=== PATIENT | female | born 1995 | race African-American/Black ===

== ENCOUNTER 2019-04-16 10:51 | Emergency (ER) | payer OTHER, SELFPAY ==
[2019-04-16 11:28] VITALS: BP 128/74; PULSE 98; RESP 16; TEMP 36.8; O2SAT 100
--- NOTE | 2019-04-16 12:41 | ED.SKABFB ---
HPI - Skin/Abscess/Foreign Bdy General Chief complaint: Skin/Abscess/Foreign Body Stated complaint: diarrhea/vomiting/lump left breast swollen Source: patient and RN notes reviewed Mode of arrival: ambulatory Limitations: no limitations History of Present Illness HPI narrative: 23 year old female accompanied by friend presents to express care with complaints of painful lump to her left breast for the past 3 week. She also states that she has had nausea for the past 4 days with vomiting yesterday and has had diarrhea for the past 2-3 days. Patient has palpable moveable lump noted to her left breast, states no pain to her axilla at this time, no drainage from her breast noted, states that he does drink caffeine. Patient denies any abdominal pain, chills or fevers associated with her nausea or vomiting or diarrhea, has not traveled outside of [place] recently or any known exposure to flu MD complaint: other (painful lump left breast) Onset (ago): week(s) (3) Tetanus up to date: yes Severity: moderate Severity scale (1-10): 3 Quality: aching Pain Consistency: constant Relieving factors: none Exacerbating factors: palpation Context: none Associated symptoms: nausea, vomiting and other (diarrhea) Treatments prior to arrival: none Related Data Home Medications Medication Instructions Recorded Confirmed dextroamphetamine-amphetamine 20 mg PO DAILY 04/16/19 04/16/19 [Adderall] Allergies Allergy/AdvReac Type Severity Reaction Status Date / Time No Known Allergies Allergy Verified 04/16/19 11:46 Review of Systems Review of Systems: Narrative: CONSTITUTIONAL: Denies fever, chills, or sweats. EYES: Denies visual changes, redness, or discharge. ENT: Denies rhinorrhea, congestion, sore throat, or otalgia. CARDIOVASCULAR: Denies chest pain, palpitations, or edema. RESPIRATORY: Denies cough or dyspnea. GASTROINTESTINAL: Denies abdominal pain, positive nausea, vomiting, or diarrhea. GENITOURINARY: Denies dysuria or hematuria. SKIN: Denies rash or itching.positive for palpable tender lump in left lateral breast increase pain with palpation MUSCULOSKELETAL: Denies back pain, joint pain, or myalgia. NEUROLOGIC: Denies headache, numbness, or weakness. PSYCHIATRIC: Denies anxiety or depression. All systems reviewed & are unremarkable except as noted in HPI and below PMFSH Past Medical History Medical History (Updated 04/18/19 @ 10:13 by Lili Stern NP) ADHD Social History Social History (Updated 04/16/19 @ 13:38 by Lili Stern NP) Smoking status: Current every day smoker Living arrangements: with family Gender identity (if verbalized by the patient): Female Comments At time of signature, agree with nursing past medical, surgical, social and family history. There is no relevant family history pertinent to the presenting complaint Exam Narrative: Exam Narrative: GENERAL: Well-appearing, well-nourished, and in no acute distress. HEAD: Normocephalic, atraumatic. EYES: PERRLA and EOMI. ENT: Nares clear, no rhinorrhea or epistaxis. Mucous membranes moist. NECK: Supple. CHEST: Clear to auscultation. No respiratory distress. Painful palpable lesion to left lateral breast HEART: Regular rate and rhythm. No murmur heard. Normal peripheral pulses. ABDOMEN: Soft, nontender, nondistended, normal active bowel sounds.negative for McBurney point tenderness EXTREMITIES: Normal range of motion. No edema. SKIN: Warm, dry, no rash. NEURO: No focal deficits. Alert and oriented x3. Course Vital Signs Vital signs: Vital Signs Temperature 36.8 C 04/16/19 11:28 Pulse Rate 98 04/16/19 11:28 Respiratory Rate 16 04/16/19 11:28 Blood Pressure 128/74 04/16/19 11:28 Pulse Oximetry 100 04/16/19 11:28 Temperature 36.8 C 04/16/19 11:28 Pulse Rate 98 04/16/19 11:28 Respiratory Rate 16 04/16/19 11:28 Blood Pressure 128/74 04/16/19 11:28 Pulse Oximetry 100 04/16/19 11:28 MDM - Skin/Abscess/Foreig
== END 2019-04-16 13:49 | disposition home or self-care (01) ==
PROVIDERS: Emergency Provider Registered Nurse
DX: K21.9 Gastro-esophageal reflux disease without esophagitis (principal); N63.0 Unspecified lump in unspecified breast; F17.200 Nicotine dependence, unspecified, uncomplicated; F90.9 Attention-deficit hyperactivity disorder, unspecified type
CPT/HCPCS: 87804; 99203; G0463

== ENCOUNTER 2019-11-30 13:16 | Emergency (ER) | payer OTHER, SELFPAY ==
--- NOTE | ~2019-11-30 | XR_ITS ---
EXAMINATION: XR elbow RT min 3V, XR wrist RT min 3V DATE: 11/30/2019 13:48 INDICATION: Inability to straighten the right elbow and pain with rotation of the right wrist post fa ll from skateboard. TECHNIQUE: 1. Anteroposterior, two oblique and lateral views of the right elbow were obtained. 2. Lateral, oblique, dorsal palmar and ulnar deviated views of the right wrist were obtained. COMPARISON: None. FINDINGS: Right elbow: Alignment is normal. There is a right elbow joint effusion with displacement of both the anterior and posterior fat pads. There is subtle angulation of the cortex at the head neck junction of the proxim al right radius best appreciated on the more lateral appearing oblique projection consistent with non displaced fracture. No involvement of the articular cortices. No other fractures identified. Joint sp aces are normal. Right wrist: Normal alignment at the right wrist and visualized hand. No fracture. Joint spaces are normal. Soft t issues are unremarkable. IMPRESSION: 1. Nondisplaced impaction fracture at the head neck junction of the proximal right radius with second jensen right elbow joint effusion. Reviewed, dictated and finalized at location B. IMPRESSION: 1. Nondisplaced impaction fracture at the head neck junction of the proximal ri ght radius with secondary right elbow joint effusion.
[2019-11-30 13:29] VITALS: BP 115/79; PULSE 86; RESP 18; TEMP 36.3; O2SAT 99
--- NOTE | 2019-11-30 13:46 | ED.UPPEXIN ---
HPI - Extremity Injury (Upper) General Chief Complaint: Extremity Injury, Upper Stated Complaint: right elbow and wrist pain Time Seen by Provider: 11/30/19 13:35 Source: RN notes reviewed History of Present Illness HPI narrative: Patient is a 24-year-old female who presents the urgent care with complaints of right elbow and right wrist pain. Patient states that she fell off her skateboard yesterday when it came out from underneath her at ground-level. Patient denies hitting her head or any loss of consciousness. States that she fell onto the wrist and slammed the elbow onto the concrete. States that she has been using 600 mg ibuprofen but is unable to straighten the right arm. Patient is right-hand dominant. No other acute complaints. No acute distress noted. Patient aware of the plan of care. Some parts of this dictation were generated by voice recognition software and may contain typographical and/or grammatical inaccuracies. Related Data Home Medications Medication Instructions Recorded Confirmed dextroamphetamine-amphetamine 20 mg PO DAILY 04/16/19 11/30/19 [Adderall] escitalopram oxalate 20 mg PO DAILY 11/30/19 11/30/19 Allergies Allergy/AdvReac Type Severity Reaction Status Date / Time No Known Allergies Allergy Verified 11/30/19 13:35 Review of Systems Review of Systems: Narrative: CONSTITUTIONAL: Denies fever, chills, or sweats. EYES: Denies visual changes, redness, or discharge. ENT: Denies rhinorrhea, congestion, sore throat, or otalgia. CARDIOVASCULAR: Denies chest pain, palpitations, or edema. RESPIRATORY: Denies cough or dyspnea. GASTROINTESTINAL: Denies abdominal pain, nausea, vomiting, or diarrhea. GENITOURINARY: Denies dysuria or hematuria. SKIN: Denies rash or itching. MUSCULOSKELETAL: Reports of right elbow and right wrist pain NEUROLOGIC: Denies headache, numbness, or weakness. All other systems reviewed are negative, except as documented in HPI. [facility] Past Medical History Medical History (Updated 11/30/19 @ 14:13 by EMILIANO Escobedo) ADHD Social History Social History (Updated 04/16/19 @ 13:38 by Lili Stern NP) Smoking status: Current every day smoker Gender identity (if verbalized by the patient): Female Comments At the time of my signature, I reviewed and agree with the nursing past medical, surgical, social, and family history. There is no relevant family history pertinent to the patient complaint. Exam Narrative: Exam Narrative: GENERAL: This is a well-nourished, well-developed patient, in no apparent distress. HEAD: normocephalic, atraumatic. EYES: PERRL. Sclera clear/white. Vision is grossly intact. EARS: External ears normal NOSE: External nose normal with no obvious nasal discharge, nares without redness, no rhinorrhea. THROAT: Mucous membranes moist, posterior pharynx clear. NECK: Neck supple SKIN: warm, intact with no suspicious lesions or rash, good texture and turgor. NEURO: awake, alert, and oriented to person, place and time. There were no obvious focal neurologic abnormalities. EXTREMITIES: Moderate edema and tenderness to the right elbow with the inability to straighten the right arm. Positive strong right radial pulse with no obvious deformity or fracture to the right wrist; capillary refill less than 2 seconds to right upper extremity. Respiratory Scientist equal. Range of motion not tested to the right upper extremity, due to pain Course Vital Signs Vital signs: Vital Signs Temperature 97.4 F L 11/30/19 13:29 Pulse Rate 86 11/30/19 13:29 Respiratory Rate 18 11/30/19 13:29 Blood Pressure 115/79 11/30/19 13:29 Pulse Oximetry 99 11/30/19 13:29 Temperature 97.4 F L 11/30/19 13:29 Pulse Rate 86 11/30/19 13:29 Respiratory Rate 18 11/30/19 13:29 Blood Pressure 115/79 11/30/19 13:29 Pulse Oximetry 99 11/30/19 13:29 Reviewed MDM - Extremity Injury (Upper) MDM Narrative Medical decision making narrative: Reviewed x-ra
== END 2019-11-30 14:33 | disposition home or self-care (01) ==
PROVIDERS: Emergency Provider Nurse Practitioner Family; PCP Family Medicine
DX: S52.134A Nondisplaced fracture of neck of right radius, initial encounter for closed fracture (principal); V00.131A Fall from skateboard, initial encounter; F17.200 Nicotine dependence, unspecified, uncomplicated; F90.9 Attention-deficit hyperactivity disorder, unspecified type
CPT/HCPCS: 29105; 73080; 73110; 99214; A4565; G0463